=== PATIENT | female | born 1945 | race Caucasian/White ===

== ENCOUNTER 2024-02-26 10:07 | Emergency (ER) | payer OTHER, SELFPAY ==
[2024-02-26] VITALS (12 sets, daily range): BP systolic 108–141; BP diastolic 52–82; PULSE 80–95
--- NOTE | 2024-02-26 11:27 | ED.GENMED ---
History of Present Illness
General
Chief Complaint: Fainting/Passed Out
Source: patient
Time Seen by Provider: 02/26/24 11:08
History of Present Illness
History of Present Illness:
78-year-old female with past medical history of IBS, gastritis, status post previous colon resection due to ischemic colitis many years ago presenting to the emergency department for evaluation after she had multiple syncopal episodes over the
, family states she syncopized 3 times this past Monday (this was reportedly 3 times within the same episode however not 3 separate times throughout the day on Monday), once on Monday but none since that time and some mild lower back pain.
Family who is present with the patient states that the episode on Monday occurred while in the shower and they attributed this to hot water. Monday the event occurred while patient was sitting in the chair. On Monday they report patient did
shake a little bit but this only lasted for about 5 seconds and there was no reported postictal phase. Family also reports that patient may have had 1 other syncopal episode few months ago while she was in the shower again. They felt that
patient's blood pressure sometimes does get low which could have also been the potential cause for the syncope. At present time patient is asymptomatic. She does note her back pain is reproducible with movement and palpation and she did not have
the back pain prior to the syncope. Denies any chest pain, palpitations, diaphoresis, exertional dyspnea, orthopnea, fevers or infectious symptoms, nausea vomiting or diarrhea.
Past History
Past History
ED Past Medical History: Other (Ischemic colitis, IBS, gastritis)
ED Past Surgical History: Bowel resection and Cholecystectomy
Social History
Tobacco: Non-smoker
Alcohol: None
Drug: None
Personal:
Living: with family
Review of Systems
Review of Systems
All Other Systems: ROS reviewed and negative except as documented in HPI and ROS
Phy Exam
Physical Exam
Physical Exam:
GENERAL: Alert , in no apparent distress
HEAD: NCAT
EYE: clear conjunctiva
NECK: Supple
ENT: o/p clr, mmm.
CARDIAC: Regular rate and rhythm, no murmur .
LUNGS: Clear breath sounds bilaterally, no acute respiratory distress, no wheezes/rales/rhonchi
ABDOMEN: Soft, without focal tenderness, no r/g, no cvat
NEUROLOGICAL: Alert and oriented
SKIN: Warm and dry, skin intact.
MUSCULOSKELETAL: No edema, well perfused.
PSYCH: Normal and appropriate interaction.
Scores
Heart Failure Risk
Heart Failure Risk Score: Not Applicable
Heart Score for Chest Pain Patients
STEMI patient?: Not applicable
Withdrawal Assessment of Alcohol
Withdrawal Assessment Completed?: Not applicable
Course
Orders/Labs/Results
Orders:
Orders
02/26/24
Electrocardiogram (*1) Stat
Reason for Study: Chest Pain
Comment: DONE
02/26/24 10:20
Electrocardiogram (*1) Urgent
Reason for Study: Syncope
02/26/24 10:21
EKG- Treatment ONCE
02/26/24 11:17
Orthostatic VS- Treatment ONCE
02/26/24 11:53
Complete Blood Count/With Diff Urgent
Comprehensive Metabolic Panel Urgent
Magnesium Urgent
TSH Urgent
02/26/24 12:53
Urinalysis Reflex To Culture Urgent
Date Specimen was Collected: 02/26/24
Time Specimen was Collected: 11:53
02/26/24 14:15
Echo 2D MMode Color/Doppler Routine
Reason for Study: syncope
02/26/24 14:35
Holter Monitor and Scan*(3) Routine
Reason for Study: syncope
Cardiology Consult: Leigha Hannah
Comment: 48 hours
Abnormal Lab Results
02/26/24
11:53
RBC 3.91 L 10^6/uL
(4.20-5.40)
MCH 32.5 H pg
(27.0-31.0)
Absolute Neuts (auto) 8.4 H 10^3/uL
(1.4-6.5)
Absolute Lymphs (auto) 1.1 L 10^3/uL
(1.2-3.4)
Absolute Monos (auto) 0.8 H 10^3/uL
(0.1-0.6)
Neutrophils % 79.8 H %
(42.2-75.2)
Lymphocytes % 10.6 L %
(20.5-51.1)
02/26/24 11:53
02/26/24 12:17
Vital Signs
Initial and Last Documented VS:
Initial Vital Signs
Temp Pulse Resp BP Pulse Ox
98.5 F 98 18 141/76 99
02/26/24 10:15 02/26/24 10:15 02/26/24 10:15 02/26/24 10:15 02/26/24 10:15
Last Documented Vital Signs
Temp Pulse Resp BP Pulse Ox
98.5 F 80 18 118/52 95
02/26/24 10:15 02/26/24 16:01 02/26/24 16:01 02/26/24 16:01 02/26/24 16:01
MDM/Problems Addressed
Differential Diagnosis Includes:
vagal event, orthostasis, cardiac dysrhythmia, cardiomyopathy, valvular dysfunction, seizure, anemia
MDM/Problems Addressed:
78-year-old female presenting to the emergency department for evaluation of recurring syncope. Triage states she syncopized 3 times Monday, 1 time Monday and again today based off my history it appears patient had 1 episode on Monday (family
attempted to continue to get the patient up after her initial syncope and was potentially syncopized again when getting up from the initial episode) and there is question as to whether patient syncopized today. Presently asymptomatic. Family noted
patient's blood pressure will often get a little low however she is normotensive here and otherwise hemodynamically stable. EKG done in triage shows a normal sinus rhythm without any ectopy or interval abnormalities. No murmur appreciated on exam.
Question cardiogenic syncope versus vagal event versus orthostasis. Less concern for seizure-like activity. Given age and recurring syncope will have to consider admission for further cardiac monitoring and evaluation versus outpatient work up.
Disposition pending
*Radiology
Radiology exam reviewed: radiology read reviewed
*Pulse Oximetry
Patient hypoxic: no
*EKG
Interpreted by ED Provider?: Yes
Heart Rate: 87
Rate: normal
Rhythm: sinus
[place]: normal axis
Ischemia: no ischemia
*Public Service Administrator Interpretation
Rate: normal
Rhythm: sinus
*Critical Care Note
Total Time (30-74mins, 75-104mins- exclusive of procedures): Not Applicable
Patient Management
Discussion with other providers: Welt Cutter
Escalation/DeEscalation of care consider admission/obs:
Patient seen by cardiology. They feel symptoms are most likely related to a vagal event but will still obtain echocardiogram and plan for Holter monitor. Patient will likely be able to be safely dispositioned home with outpatient follow-up.
Holter monitor placed in the emergency department. Patient remains hemodynamically stable. Stable for discharge home and outpatient management
ED Attending Note
-
Portions of this chart may have been created with voice recognition software.� Occasional wrong word or��sound alike� substitutions may have occurred due to the inherent limitations of voice recognition software.
Discharge Plan
Departure
Patient Disposition: Home (Routine Discharge)
Date of Disposition: 02/26/24
Time of Disposition: 16:03
Patient with high blood pressure during this ER visit?: No
Discharge Problem:
Syncope
Instructions: Syncope (Fainting) (DC)
Referrals:
Aby Brooks MD [Family Provider] -
Leigha Hannah MD [Active] -
(Cardiology - as scheduled
)
Interventions
Interventions:
*Risk Screen - Suicide Last Done: 02/26/24 10:15
*General Assessment Last Done: 02/26/24 10:15
*Neglect/Abuse Screening Last Done: 02/26/24 10:15
ED- Fall Risk Assessment Last Done: 02/26/24 12:37
*ED COVID-19 Vaccine History Last Done: 02/26/24 13:28
ED- Cardiac Assessment Last Done: 02/26/24 12:37
ED- Neurological Assessment Last Done: 02/26/24 12:37
Discharge Date and Time
Print Language: NIGERIAN
[2024-02-26 12:07] LABS: % Basophils 0.6 % (0-2); % Eosinophils 0.7 % (0-6); % Immature Granulocytes 0.3 % (0-0.5); % Lymphocytes 10.6 % (20.5-51.1); % Neutrophils 79.8 % (42.2-75.2); Absolute Basophils 0.1 10^3/uL (0-0.2); Absolute Eosinophils 0.1 10^3/uL (0-0.7); Absolute Lymphocytes 1.1 10^3/uL (1.2-3.4); Absolute Monocytes 0.8 10^3/uL (0.1-0.6); Absolute Neutrophils 8.4 10^3/uL (1.4-6.5); Hematocrit 38.1 % (37.0-47.0); Hemoglobin 12.7 g/dL (12.0-16.0); Mean Corp Hgb Conc. 33.3 g/dL (33.0-37.0); Mean Corpuscular Hgb 32.5 pg (27.0-31.0); Mean Corpuscular Volume 97.4 fL (81.0-99.0); Mean Platelet Volume 9.2 fL (7.4-10.4); Nucleated Red Blood Cells % 0 %; Platelet Count 314 10^3/uL (130-400); Red Blood Cell Count 3.91 10^6/uL (4.20-5.40); White Blood Cell Count 10.5 10^3/uL (4.8-10.8)
[2024-02-26 12:50] LABS: TSH 2.25 uIU/ml (0.47-4.68)
[2024-02-26 12:56] LABS: ALT (SGPT) 15 U/L (0-35); AST (SGOT) 23 U/L (14-36); Albumin 4.1 g/dl (3.5-5.0); Alkaline Phosphatase 82 U/L (38-126); Blood Urea Nitrogen 13 mg/dl (7-17); Calcium 9.2 mg/dl (8.4-10.2); Carbon Dioxide 28 mmol/L (22-30); Chloride 100 mmol/L (98-107); Glucose 97 mg/dl (70-99); Magnesium 2.1 mg/dl (1.6-2.3); Potassium 4.8 mmol/L (3.5-5.1); Sodium 136 mmol/L (135-145); Total Bilirubin 0.4 mg/dl (0.2-1.3); Total Protein 6.7 g/dl (6.3-8.2); eGFR > 60.00
--- NOTE | 2024-02-26 13:03 | CON.CAR ---
Addendum entered and electronically signed by Chasidy Hannah MD 02/26/24 14:55:
I saw and examined the patient.
The DEV OPS ENGINEER's note was reviewed and I agree with the note.
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 Briefly, on Monday she took a hot shower
and her was helping her get out of the shower and she lost consciousness x 3. They felt that it was related to the hot water. However, on Monday, she felt hot again all of the sudden, sat herself down and had another syncopal episode.
She wasn't particularly concerned, but when her daughter heard, she recommended eval. She has had no further episodes in the last 2 days. She has no family history of SCD. On exam, aaox3, rrr no m/r/g. Lungs CTA. She has normal extremity. ECG is
NSR. Syncope sounds consistent with a vasovagal episode. She has a h/o myocarditis, so I will update her echo if normal arrange for a two day Holter. That said, I explained the pathophysiology of Vasovagal syncope. I recommended compression,
increased fluid and salt intake. If Holter normal, pcp f/u is recommended.
Original Note:
Consultation
Consultation Request
Date/Time Consultation Requested: 02/26/24 1300
Date/Time Consultation Performed: 02/26/24 1305
Requesting Provider: Alexei Esqueda
Performing Provider: Hortencia SCHOFIELD for Dr. Hannah
Reason for Consultation: syncope
Medical History
-
Chief Complaint: syncope
History of Present Illness:
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 Briefly, on Monday she took a hot shower and her
was helping her get out of the shower and she lost consciousness x 3. They felt that it was related to the hot water. However, on Monday, she was sitting in a chair and lost consciousness again and slid to the floor. Her noted her
eyes rolled back. Her daughter checked her BP and it was 90/60's, but that is typical for patient. She denies any dizziness or chest pain and otherwise has been feeling fine. She doesn't think she drinks enough, but no change of recent. Patient
speaks some Telugu, but her daughter at bedside also helps translate- she tells me the language is [place].
Past Medical History
Past Medical History: Other (as above)
Social History
Tobacco: Non-Smoker
Alcohol: None
Family History
Family History: Reviewed & Not Pertinent
Allergies / Home Medications
Allergy/AdvReac Type Severity Reaction Status Date / Time
No Known Allergies Allergy Unverified 02/26/24 10:14
Review of Systems
-
History Source: Patient
All other systems: Negative unless noted
Constitutional: Other (syncope)
Physical Exam
Vital Signs
Temp Pulse Resp BP Pulse Ox
98.5 F 80 20 120/82 93
02/26/24 10:15 02/26/24 12:07 02/26/24 12:07 02/26/24 12:07 02/26/24 12:05
Lab Results
02/26/24 11:53
02/26/24 12:17
Physical Exam
General: Well Developed, Well Nourished and No Apparent Distress
HEENT: Normocephalic and Anicteric
Respiratory: Clear and Non Labored Respirations
Cardiac: Regular Rhythm
Musculoskeletal: No Edema
Skin: Warm
Neuro: AO x 3
Psych: Calm
Impression / Plan
-
Syncope:
-etiology is unclear
-orthos negative and also happened while sitting Monday- she does report feeling hot and diaphoretic- vagal component?
-Tele and EKG are stable, labs unremarkable
-plan for echo and Holter
Data Reviewed
-
EKG: Tracing Personally Visualized and interpreted (NSR)
Labs: Labs Reviewed by me
[2024-02-26 13:49] LABS: Urine Albumin Negative (Neg - Trace); Urine Bilirubin Negative (Negative); Urine Character Clear (Clear); Urine Color Yellow; Urine Glucose Negative (Negative); Urine Ketone Negative (Negative); Urine Leukocyte Negative (Negative); Urine Nitrite Negative (Negative); Urine Occult Blood Negative (Negative); Urine Specific Gravity 1.005 (<1.030); Urine Urobilinogen Negative (Neg - 1+)
== END 2024-02-26 16:17 | disposition home or self-care (01) ==
LOC: EMR 10:07
PROVIDERS: Physician Assistant Medical; EMERGENCY PHYSICIAN Emergency Medicine; FAMILY PHYSICIAN Family Medicine; OTHER PHYSICIAN Internal Medicine Cardiovascular Disease
DX: R55 Syncope and collapse (principal); M54.50 Low back pain, unspecified; R25.1 Tremor, unspecified; K58.9 Irritable bowel syndrome, unspecified; K55.9 Vascular disorder of intestine, unspecified; Z98.0 Intestinal bypass and anastomosis status; Z90.49 Acquired absence of other specified parts of digestive tract; Z86.79 Personal history of other diseases of the circulatory system
CPT/HCPCS: 99285; 80053; 81003; 83735; 84443; 85025; 93005; 93225; 93226; 93306